=== PATIENT | female | born 1950 | race Caucasian/White ===

== ENCOUNTER 2018-02-10 13:14 | Emergency (ER) | payer MEDICARE ==
[2018-02-10] MEDS ORDERED: HYDROcodone/Acetaminophen 5/325 mg Tablet ONE (14:46)
--- NOTE | 2018-02-10 14:50 | RAD ---
LEFT RIBS 2 VIEWS: Date: 02/10/18 PROVIDED CLINICAL HISTORY: Chest pain. FINDINGS: There is no evidence for a displaced left-sided rib fracture, pleural fluid, or pneumothorax. IMPRESSION: As above. POS: [email or web address]
--- NOTE | 2018-02-10 15:34 | CT ---
CT OF THE CHEST WITHOUT CONTRAST: 02/10/18 PROVIDED CLINICAL HISTORY: Chest pain. FINDINGS: Comparison is made with rib series same date. Heart, pericardium, and great vessels are suboptimally evaluated in the absence of IV contrast materi al. Vascular calcification including coronary calcium is demonstrated. There is no evidence for pleur al fluid or pneumothorax. There are multiple bilateral noncalcified pulmonary nodules, largest of whi ch is located at the medial right lung base measuring about 5 to 6 mm in average axial dimension. No focal consolidation is evident. The airway appears patent and of normal caliber. The osseous structur es demonstrate no concerning lytic or blastic lesions. No evidence for a traumatic abnormality involv ing the chest wall. The visualized portions of the upper abdomen appear unremarkable. IMPRESSION: 1. No evidence for traumatic abnormality with limitations due to lack of IV contrast material. 2. Multiple bilateral pulmonary nodules, which may reflect old granulomatous disease. Recommend followup CT chest in six months to assess for stability. 3. Other chronic findings as above. POS: [email or web address]
== END 2018-02-10 15:25 | disposition home or self-care (01) ==
LOC: MADERS 13:14
DX: S29.011A Strain of muscle and tendon of front wall of thorax, initial encounter (principal); E11.9 Type 2 diabetes mellitus without complications; E78.5 Hyperlipidemia, unspecified; I11.0 Hypertensive heart disease with heart failure; I50.9 Heart failure, unspecified; Z79.84 Long term (current) use of oral hypoglycemic drugs; Z79.899 Other long term (current) drug therapy; W19.XXXA Unspecified fall, initial encounter
CPT/HCPCS: 71250